=== PATIENT | female | born 1975 | race Caucasian/White ===

== ENCOUNTER → 2021-08-04 12:03 | Outpatient (BNVA) | payer MEDICAID, SELFPAY | PROVIDERS: PCP Nurse Practitioner Family; Visit Provider Nurse Practitioner Family | DX: E55.9 Vitamin D deficiency, unspecified (principal); G43.909 Migraine, unspecified, not intractable, without status migrainosus; Z79.899 Other long term (current) drug therapy; R53.83 Other fatigue; Z13.6 Encounter for screening for cardiovascular disorders; G47.00 Insomnia, unspecified; B37.3 Candidiasis of vulva and vagina; F41.9 Anxiety disorder, unspecified | CPT/HCPCS: 80053; 80061; 81003; 82306; 83036; 84443; 85025; 86705; 86706; 87340 ==

== ENCOUNTER → 2021-08-06 08:34 | Outpatient (BNVA) | payer MEDICAID, SELFPAY | PROVIDERS: Visit Provider Psychiatry & Neurology Psychiatry | DX: F43.12 Post-traumatic stress disorder, chronic (principal); F33.3 Major depressive disorder, recurrent, severe with psychotic symptoms; F41.1 Generalized anxiety disorder; F15.10 Other stimulant abuse, uncomplicated; G47.00 Insomnia, unspecified | CPT/HCPCS: 80053; 84443; 86803; 99204 ==

== ENCOUNTER → 2021-09-03 11:28 | Outpatient (BNVA) | payer MEDICAID, SELFPAY | PROVIDERS: PCP Nurse Practitioner Family; Visit Provider Psychiatry & Neurology Psychiatry | DX: F41.1 Generalized anxiety disorder (principal); F33.3 Major depressive disorder, recurrent, severe with psychotic symptoms; F43.12 Post-traumatic stress disorder, chronic | CPT/HCPCS: 99214 ==

== ENCOUNTER → 2021-10-24 08:30 | Outpatient (BNVA) | payer MEDICAID, SELFPAY | PROVIDERS: PCP Nurse Practitioner Family; Visit Provider Nurse Practitioner Psychiatric/Mental Health | DX: F33.3 Major depressive disorder, recurrent, severe with psychotic symptoms (principal); F43.12 Post-traumatic stress disorder, chronic; F15.10 Other stimulant abuse, uncomplicated; F41.1 Generalized anxiety disorder | CPT/HCPCS: 99214 ==

== ENCOUNTER → 2021-11-07 09:32 | Outpatient (BNVA) | payer MEDICAID, SELFPAY | PROVIDERS: PCP Nurse Practitioner Family; Visit Provider Social Worker | DX: F41.1 Generalized anxiety disorder (principal); F33.3 Major depressive disorder, recurrent, severe with psychotic symptoms; F43.12 Post-traumatic stress disorder, chronic | CPT/HCPCS: 90837; 90834 ==

== ENCOUNTER → 2021-11-21 07:20 | Outpatient (BNVA) | payer MEDICAID, SELFPAY | PROVIDERS: PCP Nurse Practitioner Family; Visit Provider Nurse Practitioner Psychiatric/Mental Health | DX: F33.3 Major depressive disorder, recurrent, severe with psychotic symptoms (principal); F43.12 Post-traumatic stress disorder, chronic; F15.10 Other stimulant abuse, uncomplicated; F41.1 Generalized anxiety disorder; F25.0 Schizoaffective disorder, bipolar type | CPT/HCPCS: 99215 ==

== ENCOUNTER → 2021-11-28 09:15 | Outpatient (BNVA) | payer MEDICAID, SELFPAY | PROVIDERS: PCP Nurse Practitioner Family; Visit Provider Social Worker | DX: F33.3 Major depressive disorder, recurrent, severe with psychotic symptoms (principal); F43.12 Post-traumatic stress disorder, chronic; F15.10 Other stimulant abuse, uncomplicated; F41.1 Generalized anxiety disorder; F25.0 Schizoaffective disorder, bipolar type | CPT/HCPCS: 90837; 90834 ==

== ENCOUNTER → 2021-12-19 07:26 | Outpatient (BNVA) | payer MEDICAID, SELFPAY | PROVIDERS: PCP Nurse Practitioner Family; Visit Provider Nurse Practitioner Psychiatric/Mental Health | DX: F25.0 Schizoaffective disorder, bipolar type (principal); F33.3 Major depressive disorder, recurrent, severe with psychotic symptoms; F43.12 Post-traumatic stress disorder, chronic; F41.1 Generalized anxiety disorder; F15.10 Other stimulant abuse, uncomplicated | CPT/HCPCS: 99214 ==

== ENCOUNTER 2022-01-16 10:05 | Outpatient (CLI) | payer MEDICAID, SELFPAY ==
--- NOTE | 2022-01-16 10:38 | MM_ITS ---
WS: [id number] SCREENING 3D TOMOSYNTHESIS DIGITAL MAMMOGRAM WITH CAD HISTORY: SCREENING COMPARISON: None available. Bilateral CC and MLO views submitted. Computer aided detection analyzed. Breast composition: The breasts are heterogeneously dense, which may obscure small masses. Area of in creased density and asymmetry noted in the superior RIGHT breast on the MLO and in the medial breast on the CC projection. These asymmetries may not be concordant areas. Due to their density and no prio r studies for comparison additional imaging is recommended at this time. Otherwise no abnormality wit hin either breast. MM/[place] [id number] IMPRESSION: BI-RADS: 0-Incomplete: Need additional imaging evaluation FOLLOW UP: Need Additional Imaging RIGHT breast: Spot compression views (CC and MLO). True ML. Ultrasound to follo w if abnormality persists.
== END 2022-01-16 10:06 | disposition home or self-care (01) ==
LOC: RAD 10:10
PROVIDERS: PCP Nurse Practitioner; Visit Provider Nurse Practitioner Family
DX: Z12.39 Encounter for other screening for malignant neoplasm of breast (principal)
CPT/HCPCS: 77063; 77067

== ENCOUNTER → 2022-01-23 08:33 | Outpatient (BNVA) | payer MEDICAID, SELFPAY | PROVIDERS: PCP Nurse Practitioner; Visit Provider Nurse Practitioner Psychiatric/Mental Health | DX: F25.0 Schizoaffective disorder, bipolar type (principal); F43.12 Post-traumatic stress disorder, chronic; F41.1 Generalized anxiety disorder; Z03.89 Encounter for observation for other suspected diseases and conditions ruled out | CPT/HCPCS: 99214 ==

== ENCOUNTER → 2022-02-03 11:12 | Outpatient (BNVA) | payer MEDICAID, SELFPAY | PROVIDERS: PCP Nurse Practitioner; Visit Provider Nurse Practitioner | DX: L08.9 Local infection of the skin and subcutaneous tissue, unspecified (principal); Z13.6 Encounter for screening for cardiovascular disorders; G40.909 Epilepsy, unspecified, not intractable, without status epilepticus; R53.83 Other fatigue; R60.9 Edema, unspecified | CPT/HCPCS: 81000; 85025 ==

== ENCOUNTER 2022-03-17 09:33 | Outpatient (CLI) | payer MEDICAID, SELFPAY ==
--- NOTE | 2022-03-17 | US_ITS ---
WS: [id number] ADDITIONAL VIEWS RIGHT MAMMOGRAM WITH DIGITAL BREAST TOMOSYNTHESIS. RIGHT BREAST ULTRASOUND HISTORY: ABNORMAL MAMMO COMPARISON: 01/16/2022 RIGHT MAMMOGRAM: Spot compression views and true ML with digital breast tomosynthesis and SM. The asymmetries in the RIGHT breast nearly completely resolve with additional imaging. In the upper outer quadrant of the RIGHT breast the asymmetry mildly persists. Ultrasound will be performed in this region also. No distortion. RIGHT BREAST ULTRASOUND 2-D and color Doppler imaging submitted. Ultrasound directed to the upper outer quadrant of the RIGHT breast. At 10:00, 4 cm from the nipple is a hypoechoic irregular mass without increased vascularity measuring 7 x 12 x 6 mm. This is an area of dense fibroglandular tissue. MM/[place] [id number] IMPRESSION: BI-RADS: 4-Suspicious Finding-Biopsy Should Be Considered FOLLOW UP: Biopsy Recommended Ultrasound-guided biopsy recommended of the irregular hypoechoic mass at 10:00 RIGHT breast. This may be difference fibrocystic breast disease or neoplasm. Ultrasound-guided biopsy would confirm diagnosis. Dictated By: Whitney Chou DO Signed By: Whitney Chou DO Signed Date/Time: 03/17/22 1057 DD/ 1021 KIRK
--- NOTE | 2022-03-17 09:44 | MM_ITS ---
WS: [id number] ADDITIONAL VIEWS RIGHT MAMMOGRAM WITH DIGITAL BREAST TOMOSYNTHESIS. RIGHT BREAST ULTRASOUND HISTORY: ABNORMAL MAMMO COMPARISON: 01/16/2022 RIGHT MAMMOGRAM: Spot compression views and true ML with digital breast tomosynthesis and SM. The asymmetries in the RIGHT breast nearly completely resolve with additional imaging. In the upper o uter quadrant of the RIGHT breast the asymmetry mildly persists. Ultrasound will be performed in this region also. No distortion. RIGHT BREAST ULTRASOUND 2-D and color Doppler imaging submitted. Ultrasound directed to the upper outer quadrant of the RIGHT breast. At 10:00, 4 cm from the nipple i s a hypoechoic irregular mass without increased vascularity measuring 7 x 12 x 6 mm. This is an area of dense fibroglandular tissue. MM/[place] [id number] IMPRESSION: BI-RADS: 4-Suspicious Finding-Biopsy Should Be Considered FOLLOW UP: Biopsy Recommended Ultrasound-guided biopsy recommended of the irregular hypoechoic mass at 10:00 RIGHT breast. This may be difference fibrocystic breast disease or neoplasm. Ul trasound-guided biopsy would confirm diagnosis.
== END 2022-03-17 09:34 | disposition home or self-care (01) ==
LOC: RAD 09:35
PROVIDERS: PCP Nurse Practitioner; Visit Provider Nurse Practitioner
DX: R92.8 Other abnormal and inconclusive findings on diagnostic imaging of breast (principal)
CPT/HCPCS: 76642; 77061

== ENCOUNTER 2022-03-17 20:16 | Emergency (ER) | payer MEDICAID, SELFPAY ==
[2022-03-17 20:19] VITALS: BMI 32.6
--- NOTE | 2022-03-17 20:25 | CTR_ITS ---
PROCEDURE INFORMATION: Exam: CT Head Without Contrast Exam date and time: 03/17/2022 8:42 PM Age: 46 years old Clinical indication: Condition or disease; Convulsions or seizures; Additional info: Seizure TECHNIQUE: Imaging protocol: Computed tomography of the head without contrast. Radiation optimization: All CT scans at this facility use at least one of these dose optimization techniques: automated exposure control; mA and/or kV adjustment per patient size (includes targeted exams where dose is matched to clinical indication); or iterative reconstruction. COMPARISON: No relevant prior studies available. RADIATION DOSE METRICS: Total DLP (mGy-cm): 866.75 FINDINGS: Brain: Small focus of hyperdensity in the left parietal lobe (series 5, image 41, series 602, image 12) suspicious for a small focus of the subarachnoid hemorrhage. Cerebral ventricles: No ventriculomegaly. Paranasal sinuses: Visualized sinuses are unremarkable. No fluid levels. Mastoid air cells: Visualized mastoid air cells are well aerated. Bones/joints: Unremarkable. No acute fracture. Soft tissues: Unremarkable. CT/CT head wo con* [id number] IMPRESSION: Small focus of hyperdensity in the left parietal lobe suspicious for small acute subarachnoid hemorrhage. Follow-up is suggested for stability.
--- NOTE | 2022-03-17 20:29 | CTR_ITS ---
PROCEDURE INFORMATION: Exam: CT Cervical Spine Without Contrast Exam date and time: 03/17/2022 8:49 PM Age: 46 years old Clinical indication: Pain and injury or trauma; Fall; Blunt trauma; Neck pain TECHNIQUE: Imaging protocol: Computed tomography of the cervical spine without contrast. Radiation optimization: All CT scans at this facility use at least one of these dose optimization techniques: automated exposure control; mA and/or kV adjustment per patient size (includes targeted exams where dose is matched to clinical indication); or iterative reconstruction. COMPARISON: CT head wo con* [id number] 03/17/2022 8:42 PM RADIATION DOSE METRICS: Total DLP (mGy-cm): 785.6 FINDINGS: Bones/joints: No acute fracture. Normal alignment. Discs/Spinal canal/Neural foramina: No significant disc protrusion. No severe spinal canal stenosis. No significant neural foraminal narrowing. Lungs: Lung apices are normal. Soft tissues: Unremarkable. CT/CT cervical spin wo con* [id number] IMPRESSION: No acute findings.
[2022-03-17 20:30] VITALS: BP 126/87; PULSE 79; RESP 16; TEMP 37.1; O2SAT 100
--- NOTE | 2022-03-17 20:41 | ED_ITS ---
HPI - Seizure General: Chief Complaint: Seizure Stated Complaint: SEIZURES Time Seen by Provider: 03/17/22 20:21 Source: patient and EMS Mode of arrival: EMS Limitations: no limitations History of Present Illness: HPI Narrative: 46-year-old female has a history of traumatic brain injury and a long history of seizures. States she had multiple seizures over the last 2 days. She states she takes gabapentin along with Topamax. She states that one of the seizures she had earlier today she had hit her head on the pole and has a headache along with neck pain. She denies any worsening improving factors she is awake and alert and able answer all questions appropriately. Associated symptoms: Deny chest pain, chills or fever(s) Review of Systems Const: Denies: fever(s), chills, body aches or change in appetite Eyes: Denies: blurry vision or eye discomfort ENMT: Denies: throat pain or dental pain Card: Denies: chest pain Resp: Denies: dyspnea GI: Denies: abdominal pain, nausea, vomiting or diarrhea : Denies: dysuria Musc: Reports: neck pain Skin/Breast: Denies: rash Neuro: Reports: headache(s) and seizure-like activity Psych: Denies: depression Richard/Lymph: Denies: easy bruising All/Imm: Denies: urticaria PFSH ED PFSH: Medical History Chronic pain syndrome Constipation Depression Fatigue Insomnia Medication management Migraine Psychiatric care PTSD (post-traumatic stress disorder) Schizoaffective disorder, bipolar type Screening for hypertension Seizure disorder Traumatic injury of head Vaginal yeast infection Vitamin D deficiency Social History Smoking and tobacco status: never smoked Quit status (tobacco): has quit using tobacco Year quit tobacco: (?) Second hand smoke exposure: No Alcohol intake: never Physical Exam Const: COMMON NORMALS: no acute distress, patient oriented x3 and healthy appearing HENMT: COMMON NORMALS: normocephalic and atraumatic HEAD & SCALP: normocephalic and atraumatic Eye: COMMON NORMALS: Equal, round and reactive pupils present and EOMs intact bilaterally PUPIL: Yes Equal, round and reactive pupils present Neck/C-Spine: OTHER: in c collar Chest: COMMONS NORMALS: normal inspection of the chest and normal palpation of entire chest wall Resp: COMMON NORMALS: normal respiratory effort, No retractions, No use of accessory muscles and clear to auscultation bilaterally AUSCULTATION: clear to auscultation bilaterally Cardio: COMMON NORMALS: regular rate, regular rhythm and No murmurs present (Cardio) RATE: regular rate RHYTHM: regular rhythm GI: COMMON NORMALS: Normal to inspection, nondistended, normoactive bowel sounds present, Soft to palpation, non-tender and no masses PALPATION: Yes Soft to palpation Extremity: COMMON NORMALS: normal to inspection and full ROM Neuro: COMMON NORMALS: patient oriented x3, moves all extremities and no focal motor deficits Psych: COMMON NORMALS: mental status grossly normal, Normal thought process present and cooperative THOUGHT PROCESS: Normal thought process present Skin: COMMON NORMALS: no rashes or lesions noted and no wounds GENERAL SKIN EXAM: no rashes or lesions noted Course Vital Signs: Vital signs: Vital Signs Temperature 98.8 F 03/17/22 20:30 Pulse Rate 79 03/17/22 20:30 Respiratory Rate 16 03/17/22 20:30 Blood Pressure 126/87 03/17/22 20:30 Pulse Oximetry 100 03/17/22 20:30 MDM - Seizure MDM Narrative Medical decision making narrative: Patient presents here with a seizure is also a head injury from her seizure. Patient's head CT did show a subarachnoid hemorrhage. Patient is neuro intact here. Did speak to Dr. Carbone at [facility] will transfer there for higher level of care of neurosurgery. Lab Data Result diagrams: 03/17/22 20:04 Labs: Radiology Impressions Head CT 03/17/22 20:25 IMPRESSION: Small focus of hyperdensity in the left parietal lobe suspicious for small acute subarachnoid hemorrhage. Follow-up is suggested for stability. ADDENDUM: 03/17/222116 THIS REPORT CONTAINS FINDINGS THAT MAY BE CRITICAL TO PATIENT CARE. The findings were verbally communicated via telephone conference with CARYN WORTHINGTON at 9:15 PM CDT on 03/17/2022. The findings were acknowledged and understood. Cervical Spine CT 03/17/22 20:29 IMPRESSION: No acute findings. Laboratory Results Sodium 139 mmol/L (136-145) 03/17/22 20:04 Potassium 3.5 mmol/L (3.5-5.1) 03/17/22 20:04 Chloride 103 mmol/L (98-107) 03/17/22 20:04 Carbon Dioxide 23 mmol/L (22-29) 03/17/22 20:04 Anion Gap 16.5 (5-19) 03/17/22 20:04 BUN 14 mg/dL (6-20) 03/17/22 20:04 Creatinine 0.7 mg/dL (0.5-0.9) 03/17/22 20:04 GFR Calculation 90.1 mL/min (90-130) 03/17/22 20:04 Glucose 102 mg/dL (65-115) 03/17/22 20:04 Calculated Osmolality 289 mOsm/kg (285-295) 03/17/22 20:04 Calcium 9.5 mg/dL (8.5-10.5) 03/17/22 20:04 Critical Care Time Critical Care Time: Critical Care Time: Yes Total Critical Care Time: 40 Attestation: The high probability of a clinically significant, sudden or life threatening deterioration of the patient'sneuro system(s) required my full and direct attention, intervention and personal management. The critical care time is as shown. This time is in addition to time spent performing any reported procedures but includes the following: [x] Data and vital sign review and interpretation [x] Patient assessment, examination and intervention [x] Documentation [x] Medication orders and management Discharge Plan Discharge Patient Disposition: Xfer Short-Term Hosp Clinical Impression: Subarachnoid hemorrhage, Seizure, Acute head trauma Condition: Stable Referrals: Shavonne Champagne FNP [Primary Care Provider] - Coding Level of Care Code ED Hand Spring Repairer Helper for Chg Fwd Exam Comprehensive
[2022-03-17 21:05] LABS: Anion Gap 16.5 (5-19); Blood Urea Nitrogen 14 mg/dL (6-20); Calcium 9.5 mg/dL (8.5-10.5); Carbon Dioxide 23 mmol/L (22-29); Chloride 103 mmol/L (98-107); Glomerular Filtration Rate 90.1 mL/min (90-130); Glucose 102 mg/dL (65-115); Osmolality Calculated 289 mOsm/kg (285-295); Potassium 3.5 mmol/L (3.5-5.1); Sodium 139 mmol/L (136-145)
[2022-03-17] MEDS: LORazepam 2 mg/mL INJ 1 mL 1 MG IVP (21:27)
[2022-03-17] MEDS: ondansetron 2 mg/ML SDV 2 mL 4 MG IVP (21:27)
[2022-03-17] MEDS: morphine 4 mg/mL SDV 1 mL IVP (21:27)
--- NOTE | 2022-03-17 21:28 | PC.NURSE ---
Pt. states that she has had 6 seizures this week, but today she had a seizure and hit her head on a column in the dining room and then on the floor. Pt. states that she has head and neck pain .
--- NOTE | 2022-03-17 21:29 | PC.NURSE ---
C-Collar removed per Dr. burgess.
[2022-03-17 21:30] VITALS: BP 103/75; PULSE 76; RESP 18; O2SAT 95
[2022-03-17 22:45] VITALS: BP 108/73; O2SAT 100
== END 2022-03-17 22:46 | disposition short-term general hospital (02) ==
PROVIDERS: Emergency Provider Emergency Medicine; PCP Nurse Practitioner
DX: R56.9 Unspecified convulsions (principal); S06.6X9A Traumatic subarachnoid hemorrhage with loss of consciousness of unspecified duration, initial encounter; W22.09XA Striking against other stationary object, initial encounter
CPT/HCPCS: 70450; 72125; 80048; 96374; 96375; 99285; J2060; J2270; J2405

== ENCOUNTER 2022-04-07 08:18 | Emergency (ER) | payer MEDICAID, SELFPAY ==
[2022-04-07 08:23] VITALS: BP 114/85; PULSE 60; RESP 15; TEMP 36.4; O2SAT 100; BMI 32.6
--- NOTE | 2022-04-07 08:28 | ED_ITS ---
HPI - Seizure General: Chief Complaint: Seizure Stated Complaint: Seizures Time Seen by Provider: 04/07/22 08:26 Source: patient Mode of arrival: ambulatory Limitations: no limitations History of Present Illness: HPI Narrative: 46-year-old female presents emergency room with complaint of seizures.Patient has a known history of seizure disorder is on topiramate. She is also on Valium and Geodon. Patient states she has an upcoming EEG scheduled. She is currently a resident of an assisted living facility. She does not recall the events she is mildly postictal with some fatigue and a mild headache immediately after she had poor recall and was slightly confused. complaint: seizure Onset (ago): hour(s) Description of Episode: loss of consciousness and tonic-clonic movement Witnessed: Yes - by Other Trauma: No Seizure History: Yes Place: Home Associated symptoms: Reports confusion (Postictal), malaise and weakness; Deny chest pain, chills, cough, diaphoresis, fever(s), anorexia, rash, short of breath or syncope Treatments prior to arrival: none Review of Systems Const: Reports: malaise; Denies: fever(s), chills, fatigue or diaphoresis ENMT: Denies: throat pain, ear or mastoid pain, nasal discharge or nasal congestion Card: Denies: chest pain or syncope Resp: Denies: dyspnea, productive cough or non-productive cough GI: Denies: abdominal pain, nausea, vomiting, hematemesis, coffee ground emesis, diarrhea, constipation, bloating, hematochezia or melena : Denies: flank pain, difficulty voiding, dysuria, urinary frequency or urinary urgency Skin/Breast: Denies: rash or pruritus Neuro: Reports: headache(s) and confusion (Postictal) PFS ED PFSH: Medical History Chronic pain syndrome Constipation Depression Fatigue Insomnia Medication management Migraine Psychiatric care PTSD (post-traumatic stress disorder) Schizoaffective disorder, bipolar type Screening for hypertension Seizure disorder Traumatic injury of head Vaginal yeast infection Vitamin D deficiency Social History Smoking and tobacco status: never smoked Quit status (tobacco): has quit using tobacco Year quit tobacco: (?) Second hand smoke exposure: No Alcohol intake: never Physical Exam Const: GENERAL APPEARANCE: cooperative and comfortable ORIENTATION/CONSCIOUSNESS: Yes awake, Yes oriented to person, Yes oriented to place and Yes oriented to time HENMT: COMMON NORMALS: normocephalic, atraumatic and hearing grossly normal bilaterally HEAD & SCALP: normocephalic and atraumatic Neck/C-Spine: COMMON NORMALS: no JVD Resp: COMMON NORMALS: normal respiratory effort, No retractions, No use of accessory muscles and clear to auscultation bilaterally AUSCULTATION: clear to auscultation bilaterally Cardio: COMMON NORMALS: no JVD, regular rate, regular rhythm and No murmurs present (Cardio) RATE: regular rate RHYTHM: regular rhythm GI: COMMON NORMALS: Soft to palpation and No hepatosplenomegaly present AUSCULTATION: Yes normoactive bowel sounds PALPATION: Yes Soft to palpation, No Tenderness to palpation present (GI), No Guarding due to palpation present (GI) and Yes No hepatosplenomegaly present Extremity: COMMON NORMALS: normal to inspection, capillary refill normal, no clubbing, cyanosis or edema, no calf tenderness and no pedal edema Neuro: SENSORIUM/ORIENTATION: Yes oriented to person, Yes oriented to place and Yes oriented to time Skin: COMMON NORMALS: no rashes or lesions noted GENERAL SKIN EXAM: no rashes or lesions noted Course Vital Signs: Vital signs: Vital Signs Temperature 97.6 F 04/07/22 08:23 Pulse Rate 57 L 04/07/22 10:29 Respiratory Rate 18 04/07/22 10:29 Blood Pressure 114/85 04/07/22 10:29 Pulse Oximetry 97 04/07/22 10:29 MDM - Seizure MDM Narrative Medical decision making narrative: Patient reports having 5 seizures this morning and had seizures yesterday as well. Organ to load her with Keppra neurologically she is intact at this time. She has had work-up before per her report with a neurologist in [place]. Have her follow-up with him next week. We did try to reach out to her neurologist but were unable to contact him Medical Records Attestation: I reviewed the patient's medical records. Lab Data Attestation: I reviewed the patient's lab results. Result diagrams: 04/07/22 08:42 04/07/22 08:42 Labs: Laboratory Results WBC 7.3 10^3/uL (4.0-10.0) 04/07/22 08:42 RBC 4.47 10^6/uL (4.1-5.3) 04/07/22 08:42 Hgb 13.4 g/dL (11.5-15.3) 04/07/22 08:42 Hct 40.1 % (37.0-47.0) 04/07/22 08:42 MCV 89.7 fl (81-99) 04/07/22 08:42 MCH 30.0 pg (28.0-34.0) 04/07/22 08:42 MCHC 33.4 g/dL (30.0-36.0) 04/07/22 08:42 RDW 12.3 % (12.1-15.1) 04/07/22 08:42 Plt Count 279 10^3/cmm (130-400) 04/07/22 08:42 MPV 11.3 fL (7.4-10.4) H 04/07/22 08:42 Neut % (Auto) 50.5 % 04/07/22 08:42 Lymph % (Auto) 35.9 % 04/07/22 08:42 [place] % (Auto) 5.1 % 04/07/22 08:42 Eos % (Auto) 7.4 % 04/07/22 08:42 Baso % (Auto) 1.0 % 04/07/22 08:42 Neut # (Auto) 3.68 10^3/uL (1.8-7.7) 04/07/22 08:42 Lymph # (Auto) 2.6 10^3/uL (0.8-4.8) 04/07/22 08:42 [place] # (Auto) 0.4 10^3/uL (0.2-0.9) 04/07/22 08:42 Eos # (Auto) 0.5 10^3/uL (0.0-0.8) 04/07/22 08:42 Baso # (Auto) 0.1 10^3/uL (0.0-0.1) 04/07/22 08:42 Nucleated RBC % (auto) 0 % 04/07/22 08:42 Nucleated RBCs # 0.0 /100WBC 04/07/22 08:42 Sodium 143 mmol/L (136-145) 04/07/22 08:42 Potassium 4.5 mmol/L (3.5-5.1) 04/07/22 08:42 Chloride 109 mmol/L (98-107) H 04/07/22 08:42 Carbon Dioxide 23 mmol/L (22-29) 04/07/22 08:42 Anion Gap 15.5 (5-19) 04/07/22 08:42 BUN 10 mg/dL (6-20) 04/07/22 08:42 Creatinine 0.8 mg/dL (0.5-0.9) 04/07/22 08:42 GFR Calculation 77.2 mL/min (90-130) L 04/07/22 08:42 Glucose 95 mg/dL (65-115) 04/07/22 08:42 Calculated Osmolality 295 mOsm/kg (285-295) 04/07/22 08:42 Calcium 9.1 mg/dL (8.5-10.5) 04/07/22 08:42 Total Bilirubin 0.2 mg/dL (0.15-1.2) 04/07/22 08:42 AST 15 U/L (0-32) 04/07/22 08:42 ALT 16 U/L (0-33) 04/07/22 08:42 Alkaline Phosphatase 88 IU/L (35-105) 04/07/22 08:42 Total Protein 7.5 g/dL (6.6-8.7) 04/07/22 08:42 Albumin 4.3 g/dL (3.5-5.2) 04/07/22 08:42 Globulin 3.2 g/dL (1.3-4.6) 04/07/22 08:42 Discharge Plan Discharge Patient Disposition: Home Clinical Impression: Generalized seizure Condition: Stable Prescriptions: New Keppra XR 500 mg tablet extended release 24 hr 1,000 mg PO DAILY Qty: 60 0RF No Action [id number] 50-325-40 mg tablet 1 tab PO Q6H PRN (Reason: Migraine Headache) 0RF polyethylene glycol 3350 [Miralax] 17 gram/dose powder See Rx Instructions PO DAILY 30 Days Qty: 510 2RF Rx Instructions: 8.5g to 17g daily, can titrate dose from daily to every other day prn midodrine 5 mg tablet 10 mg PO TID@06,12,21 0RF (DME) comp.stocking,knee,long,medium Misc See Rx Instructions .Route Qty: 2 0RF Rx Instructions: As directed diazepam [Valium] 5 mg tablet 5 mg PO BID PRN (Reason: anxiety/agitation) Qty: 60 3RF topiramate [Topamax] 100 mg Tablet 200 mg PO DAILY@06 0RF meloxicam 15 mg tablet 15 mg PO BID@,21 0RF gabapentin 800 mg tablet 800 mg PO TID@,,21 0RF trazodone 100 mg tablet 100 mg PO BEDTIME PRN (Reason: insomnia) 0RF diazepam [Valium] 2 mg tablet 2 mg PO BID@,18 0RF Rx Instructions: Take one tablet twice per day docusate sodium 100 mg capsule 100 mg PO QID 0RF Rx Instructions: @,,, ziprasidone HCl [Geodon] 40 mg capsule 40 mg PO BID@,18 0RF Rx Instructions: with 500 calorie amercia Discharge Orders: Discharge ED (Routine); Ordered 04/07/22 Ordered By: Esteban Simon Referrals: Shavonne Champagne FNP [Primary Care Provider] - Discharge Diet: Usual diet Discharge Activity: Resume usual activity Activity Restrictions/Additional Instructions: Start Keppra 2 pills once daily follow-up with your neurologist within the next week. Coding Level of Care Code ED Epoxy Specialist for Reagan Fwd Exam Comprehensive
[2022-04-07 08:50] LABS: Basophils # 0.1 10^3/uL (0.0-0.1); Eosinophils # 0.5 10^3/uL (0.0-0.8); Eosinophils % 7.4 %; Hematocrit 40.1 % (37.0-47.0); Hemoglobin 13.4 g/dL (11.5-15.3); Lymphocytes # 2.6 10^3/uL (0.8-4.8); Lymphocytes % 35.9 %; Mean Corpuscular HGB Conc 33.4 g/dL (30.0-36.0); Mean Corpuscular Volume 89.7 fl (81-99); Mean Platelet Volume 11.3 fL (7.4-10.4); Monocytes # 0.4 10^3/uL (0.2-0.9); Monocytes % 5.1 %; Neutrophils # 3.68 10^3/uL (1.8-7.7); Neutrophils % 50.5 %; Nucleated Red Blood Cells % 0 %; Platelet Count 279 10^3/cmm (130-400); Red Blood Count 4.47 10^6/uL (4.1-5.3); Red Cell Distribution Width 12.3 % (12.1-15.1); White Blood Count 7.3 10^3/uL (4.0-10.0)
--- NOTE | 2022-04-07 08:55 | PC.PHAR ---
pt is from [facility][1] [phone]-spoke with esther from [facility][1] states she gives the pt her medications-states the pt took all am meds today-will fax mar but gave medcations verbally-esther states the pt takes the medications entered-notes are made in some of the pharmacy comments
[2022-04-07 09:07] LABS: Alanine Aminotransferase 16 U/L (0-33); Albumin Level 4.3 g/dL (3.5-5.2); Alkaline Phosphatase 88 IU/L (35-105); Blood Urea Nitrogen 10 mg/dL (6-20); Calcium 9.1 mg/dL (8.5-10.5); Carbon Dioxide 23 mmol/L (22-29); Chloride 109 mmol/L (98-107); Globulin 3.2 g/dL (1.3-4.6); Glomerular Filtration Rate 77.2 mL/min (90-130); Glucose 95 mg/dL (65-115); Osmolality Calculated 295 mOsm/kg (285-295); Sodium 143 mmol/L (136-145); Total Bilirubin 0.2 mg/dL (0.15-1.2); Total Protein 7.5 g/dL (6.6-8.7)
[2022-04-07 09:09] LABS: Anion Gap 15.5 (5-19); Aspartate Amino Transferase 15 U/L (0-32); Potassium 4.5 mmol/L (3.5-5.1)
[2022-04-07] MEDS: ketorolac 30 mg/mL INJ IVP (10:06)
[2022-04-07 10:29] VITALS: BP 114/85; PULSE 57; RESP 18; O2SAT 97
== END 2022-04-07 10:31 | disposition home or self-care (01) ==
PROVIDERS: Emergency Provider Family Medicine; PCP Nurse Practitioner
DX: R56.9 Unspecified convulsions (principal)
CPT/HCPCS: 80053; 85025; 96365; 96375; 99284; J1885; J1953

== ENCOUNTER 2022-05-13 08:03 | Outpatient (CLI) | payer MEDICAID, SELFPAY ==
--- NOTE | 2022-05-13 08:07 | US_ITS ---
WS: [id number] ULTRASOUND-GUIDED RIGHT BREAST BIOPSY CLINICAL INFORMATION: breast mass COMPARISON: March 17, 2022 FINDINGS: The procedure including risks, benefits, and complications were discussed with the patient who agreed to proceed. Using sterile technique patient was prepped and draped in the usual sterile fashion. Aft er 1% lidocaine utilizing real-time ultrasound guidance 5 14-gauge cores were obtained of the RIGHT b reast lesion at the 10 o'clock position. Subsequently a titanium clip was placed in the biopsy cavity . No immediate complications. Pathology demonstrates A. Breast, right breast mass , ultrasound-guided biopsy: - Fibroadenoma. - No malignancy identified. US/[place] [id number] IMPRESSION: 1. Uncomplicated ultrasound-guided RIGHT breast biopsy. 2. The pathology demonstrates fibroadenoma. No malignancy identified. 3. Recommend return to annual screening mammography. BI-RADS: 2-Benign FOLLOW UP: 1 Year Follow-up
== END 2022-05-13 08:04 | disposition home or self-care (01) ==
LOC: RAD 08:04
PROVIDERS: PCP Nurse Practitioner; Visit Provider Nurse Practitioner
DX: N63.10 Unspecified lump in the right breast, unspecified quadrant (principal); D24.1 Benign neoplasm of right breast
CPT/HCPCS: 19083; 88305

== ENCOUNTER → 2022-05-26 10:23 | Outpatient (BNVA) | payer MEDICAID, SELFPAY | PROVIDERS: PCP Nurse Practitioner; Visit Provider Internal Medicine Cardiovascular Disease | DX: I95.9 Hypotension, unspecified (principal); M79.89 Other specified soft tissue disorders; R06.02 Shortness of breath; R07.9 Chest pain, unspecified | CPT/HCPCS: 36415; 80048; 83880; 93005; 99204 ==